=== PATIENT | female | born 1935 ===

== ENCOUNTER 2020-01-24 12:44 | Emergency (ER) | payer OTHER ==
[~2020-01-24] VITALS: Ht 152.4 cm; Wt 63.5 kg
[2020-01-24] MEDS ORDERED: XARELTO20 MG PO (12:52)
[2020-01-24] MEDS ORDERED: SYNTHROID50 MCG PO (12:52)
[2020-01-24] MEDS ORDERED: NORVASC5 MG PO (12:52)
[2020-01-24] MEDS ORDERED: INDERAL XL80 MG PO (12:53)
[2020-01-24] MEDS ORDERED: FLUDROCORTISON0.1 MG PO (12:54)
== END 2020-01-24 20:44 | disposition home or self-care (01) ==
LOC: ER 12:44 → CPU-OBS 13:01 → ER 13:01
DX: R42 Dizziness and giddiness (principal); R00.2 Palpitations; G30.8 Other Alzheimer's disease; F02.80 Dementia in other diseases classified elsewhere, unspecified severity, without behavioral disturbance, psychotic disturbance, mood disturbance, and anxiety